=== PATIENT | female | born 1970 | race Two or more races ===

== ENCOUNTER 2024-12-18 21:47 | Emergency (ER) | payer OTHER ==
[~2024-12-18] VITALS: Ht 160 cm; Wt 61.8 kg
[2024-12-18 22:02] VITALS: BP 117/75; PULSE 76; RESP 18; TEMP 98.2; O2SAT 99
[2024-12-18 22:32] LABS: PLATELET COUNT (AUTO) 302 K/uL (150-450); RED BLOOD CELL COUNT(AUTO) 4.25 MIL/uL (4.00-5.20); RED CELL DISTRIBUTION WIDTH 13.6 % (11.5-14.5); WHITE BLOOD COUNT (AUTO) 10.5 K/uL (4.5-11.0)
[2024-12-18 22:40] LABS: CALCIUM, TOTAL 8.6 mg/dL (8.8-10.5); CREATININE 1.06 mg/dL (0.60-1.30); GLOMERULAR FILTR. RATE CALC 54 mL/min (>60); GLUCOSE,RANDOM 112 mg/dL (70-110); SODIUM SERUM 139 mmol/L (136-145); UREA NITROGEN, BLOOD 14 mg/dL (7-18)
[2024-12-18 22:48] LABS: TROPONIN I-HIGH SENSITIVITY Less Than 4 ng/L (<51)
[2024-12-19] MEDS ORDERED: TRAM50TA5 PO (02:23)
[2024-12-19] MEDS ORDERED: LIDO-57 TP (02:31)
[2024-12-19] MEDS: KETOROLAC TROMETHAMINE 30 MG/ML VIAL IM ONE (02:37)
== END 2024-12-19 02:44 | disposition home or self-care (01) ==
LOC: EMS 21:47
DX: M67.813 Other specified disorders of tendon, right shoulder (principal); R07.9 Chest pain, unspecified
CPT/HCPCS: 99285; 80048; 82550; 84484; 85025; 85379; 36415; 73060; 93005; 96372; J1885